=== PATIENT | female | born 1965 | race Caucasian/White ===

== ENCOUNTER 2021-07-09 09:59 | Emergency (ER) | payer OTHER ==
[2021-07-09 10:41] LABS: BILIRUBIN NEGATIVE (NEGATIVE); BLOOD NEGATIVE Ery/uL (NEGATIVE); CLARITY CLEAR (CLEAR); COLOR YELLOW (YELLOW); GLUCOSE (U) NORMAL (NORMAL); LEUKOCYTES NEGATIVE Leu/uL (NEGATIVE); NITRITE NEGATIVE (NEGATIVE); PROTEIN 1+ mg/dL (NEGATIVE); SPECIFIC GRAVITY 1.025 (1.001-1.030); UROBILINOGEN 0.2 mg/dL (0.2-1.0)
[2021-07-09 10:49] LABS: SQUAMOUS EPITHELIAL CELLS RARE
[2021-07-09 10:50] LABS: MUCOUS TRACE
[2021-07-09 11:16] LABS: BASOPHIL 0.5 % (0-2); EOSINOPHIL 0.4 % (0-5); HCT 46.8 % (37.0-47.0); HGB 15.4 g/dl (12.5-16.0); LYMPHOCYTE 6.4 % (15-48); MCHC 32.9 g/dL (32.0-36.0); MCV 94.2 fL (78.0-100.0); MONOCYTE 5.9 % (0-12); MPV 9.2 fL (6.0-9.5); NEUTROPHIL 86.2 % (41-80); NRBC 0; PLT 297 K/uL (150-400); RBC 4.97 M/uL (4.20-5.40); WBC 15.4 K/uL (4.0-10.5)
[2021-07-09 11:27] LABS: ALBUMIN 4.1 g/dL (3.4-5.0); BILIRUBIN - TOTAL 0.5 mg/dL (0.2-1.0); BUN/CREAT RATIO (CALC) 24.4 RATIO; CREATININE 0.78 mg/dL (0.51-0.95); GLOBULIN (CALCULATION) 3.2 g/dL; MAGNESIUM 2.3 mg/dL (1.8-2.4); POTASSIUM 4.4 mmol/L (3.5-5.1); TOTAL PROTEIN 7.3 g/dL (6.4-8.2)
[2021-07-09] MEDS ORDERED: ZOFRAN4 M1 PO (12:56)
[2021-07-09] MEDS ORDERED: BENTYL10 MG PO (12:56)
== END 2021-07-09 13:31 | disposition home or self-care (01) ==
LOC: FER 09:59
PROVIDERS: Emergency Medicine
DX: K52.9 Noninfective gastroenteritis and colitis, unspecified (principal); I25.2 Old myocardial infarction; F17.210 Nicotine dependence, cigarettes, uncomplicated; Z95.5 Presence of coronary angioplasty implant and graft; Z79.82 Long term (current) use of aspirin; Z79.899 Other long term (current) drug therapy
CPT/HCPCS: 36415; 80053; 81001; 83690; 83735; 84145; 84484; 85025; 93005; Q9967